=== PATIENT | male | born 1960 | race Caucasian/White ===

== ENCOUNTER 2016-12-17 06:36 | Day surgery (SDC) | payer MEDICARE, MEDICAID ==
[~2016-12-17 06:36] MED LIST: RINGERS SOLUTION,LACTATED 1,000 ML IV PRN
--- OUTSIDE RECORDS SUMMARY | 2016-12-17 06:41 | XMS REPORT | Continuity of Care Document ---
:1960 Demographics Address [address] [place] [address] Home Phone [phone] Phone [phone] Preferred Language Unknown Marital Status Unknown Jehovah'S Witness Affiliation No Preference Race White Ethnic Group Unknown Author Organization [facility] ([facility]) Address [address] [place] [address] Phone [phone] Care Team Providers Name Role Phone Cristy Mackey Primary Care Provider [phone] Source Comments This disclosure is being made pursuant to the Care Everywhere program, applicable federal and state laws, and may not contain all informaitonavailable regarding this patient.[facility] ([facility]) Active Allergies and Adverse Reactions No Active Allergies Current Medications Prescription Sig. Disp. Refills Start Date End Date Status warfarin (COUMADIN) 3 mg take by mouth. Active tablet 6mg M,W,F; 4.5mg 4d/wk Active Problems Problem Noted Date Long-term (current) use of anticoagulants 12/06/2008 Overview: ANTICOAGULATION PROFILE: Primary Number: [phone] (mother- Jackie) PHYSICIAN: Jeannette/Dorita changed to Anand/Narendra on 04/26 pager:[phone] CLP: [id number] Local lab: [facility] in [place], [place] ([phone]) Pharmacy: currently [facility] in [place], however has [facility] so may get meds from [facility] Indication for Warfarin: Upper Extremity axillary DVT, Pulmonary Embolism, and Factor V Leiden 11/26; 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; Right lower leg DVT 02/27 Target INR Range: 2-3 Duration of Warfarin Therapy: Indef Date Warfarin Re-Initiated: 03/08/06 Alcohol use: 2 beers per day Anticoagulation Comments: Anticoagulation agreement signed: 03/22/06 Unspecified disorder of the teeth and supporting structures 03/12/2008 Loss of teeth due to periodontal disease 03/12/2008 Impacted cerumen 03/12/2008 Encounter for long-term (current) use of other medications 07/10/2007 Screening for diabetes mellitus 01/03/2007 Screening for lipoid disorders 01/03/2007 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 Unspecified hearing loss 06/01/2005 Follow-up examination following completed treatment with high-risk 03/05/2005 medications, not elsewhere classified Acute venous embolism and thrombosis of other specified veins 12/23/2004 Immunizations Name Dates Previously Given Next Due Influenza, unspecified 04/26/2006 Pneumococcal, unspecified 03/12/2006 Td, adult unspecified 07/25/1999 Social History Tobacco Use Types Packs/Day Years Used Date Never Assessed Last Filed Vital Signs Vital Sign Reading Time Taken Blood Pressure 125/87 08/16/2008 9:14 AM [facility] Pulse 59 08/16/2008 9:14 AM [facility] Temperature 36.7 C (98.06 F) 08/16/2008 9:14 AM [facility] Respiratory Rate 16 08/16/2008 9:14 AM [facility] Height 1.74 m (5' 8.5") 08/16/2008 9:14 AM [facility] Weight 70.199 kg (154 lb 12.2 oz) 08/16/2008 9:14 AM [facility] Body Mass Index 23.19 08/16/2008 9:14 AM [facility] Oxygen Saturation 98% 03/26/2008 11:53 AM CDT Plan of Care Health Maintenance Due Date Last Done Comments Hepatitis B Vaccine (1 of 3 - Primary 1960 Series) Tdap Vaccine 1971 MMR Vaccine 1978 Td Vaccine 07/25/2009 07/25/1999 Colonoscopy 2010 Prostate Cancer Screening 2010 Lipid Disorder Screening 03/12/2013 03/12/2008, 04/26/2006 Influenza Vaccine: Seasonal (#1) 02/23/2016 04/26/2006 HCV Screening Completed 12/16/2004 Results from Last 3 Months Not on file
[2016-12-17] MEDS: RINGERS SOLUTION,LACTATED 1,000 ML IV ONE (07:30)
[2016-12-17] MEDS: ceFAZolin SODIUM 1 GM in DEXTROSE 5 % IN WATER 100 ML IV PRN ×2 (08:10)
[2016-12-17] MEDS: BUPIVACAINE HCL/EPINEPHRINE 50 ML VIAL IJ ONE ×2 (08:25)
--- NOTE | 2016-12-17 09:05 | OR ---
Operative Report - Dictated Report Narrative: Date: 12/17/2016 PREOP: Incarcerated umbilical hernia POSTOP: same PROC: Umbilical hernia repair with small ventralex mesh. SURG: Tacho Knapp MD EBL: Min Drains: none Comps: none apparent Specimen: none Description: Supine position with MAC. Abdomen prepped and draped in a sterile fashion. Field block performed around umbilicus. Supraumbilical incision carried out. Hernia sac dissected free from subQ and disconnected from fascial rim. Properitoneal pocket developed with sponge packing. Small ventralex ST patch deployed into properitoneal pocket and tails cut to length. Tails wrapped around fascial rim. Prosthesis was secured with a running whip- stitch of 0-prolene 360 degrees around the rim and tied to itself. Hemostasis was adequate. Base of umbilicus secured to fascia with vicryl stitch. Incision closed with subcuticular stitch of 4-0 vicryl and sealed with dermabond. Pt tolerated procedure well without apparent complications and was discharged from the operating room in stable condition.
[2016-12-17 10:14] VITALS: BP 109/79
== END 2016-12-17 06:37 | disposition home or self-care (01) ==
LOC: AMB 06:36
PROVIDERS: ATTEND Specialist
PROC: 0WUF0JZ Supplement Abdominal Wall with Synthetic Substitute, Open Approach (ICD-10-PCS; principal; 2016-12-17 08:00)
DX: K42.0 Umbilical hernia with obstruction, without gangrene (principal); I10 Essential (primary) hypertension; E78.5 Hyperlipidemia, unspecified; J44.9 Chronic obstructive pulmonary disease, unspecified; F17.200 Nicotine dependence, unspecified, uncomplicated; Z68.29 Body mass index [BMI] 29.0-29.9, adult